=== PATIENT | female | born 1945 | race Caucasian/White ===

== ENCOUNTER 2020-09-04 19:30 | Emergency (ER) | payer MEDICARE, OTHER ==
[2020-09-04] MEDS ORDERED: traMADol 50 MG Tab PO ONE (19:31)
--- NOTE | 2020-09-04 21:20 | CT ---
PROCEDURE INFORMATION: Exam: CT Head Without Contrast Exam date and time: 09/04/2020 8:31 PM Age: 75 years old Clinical indication: Injury or trauma; Fall; Blunt trauma (contusions or hematomas); Without loss of consciousness; Additional info: Fall hit head TECHNIQUE: Imaging protocol: Computed tomography of the head without contrast. Radiation optimization: All CT scans at this facility use at least one of these dose optimization techniques: automated exposure control; mA and/or kV adjustment per patient size (includes targeted exams where dose is matched to clinical indication); or iterative reconstruction. COMPARISON: No relevant prior studies available. FINDINGS: Brain: Age-related cerebral and cerebellar atrophy. There is a normal hopkins-white matter interface. No hemorrhage. No cerebral edema. Unremarkable white matter. No mass effect. No intra-axial or extra-axial fluid collections. Cerebral ventricles: No ventriculomegaly. Paranasal sinuses: Visualized sinuses are unremarkable. No fluid levels. Mastoid air cells: Visualized mastoid air cells are well aerated. Bones/joints: Hyperostosis frontalis. No acute fracture. Soft tissues: Right parietal contusion/small scalp hematoma at the convexity of the brain. IMPRESSION: 1. No acute intracranial abnormality. 2. Right parietal scalp contusion/small hematoma.
--- NOTE | 2020-09-04 21:24 | CT ---
PROCEDURE INFORMATION: Exam: CT Pelvis Without Contrast; Skeletal Exam date and time: 09/04/2020 8:31 PM Age: 75 years old Clinical indication: Injury or trauma; Fall; Blunt trauma (contusions or hematomas); Bilateral; Pelvic region; Additional info: Fall, slipped on boat landing and hit back of head on concrete, bilateral hip pain TECHNIQUE: Imaging protocol: Computed tomography images of the pelvis without contrast. Exam focused on the skeletal structures. Radiation optimization: All CT scans at this facility use at least one of these dose optimization techniques: automated exposure control; mA and/or kV adjustment per patient size (includes targeted exams where dose is matched to clinical indication); or iterative reconstruction. COMPARISON: No relevant prior studies available. FINDINGS: Stomach and bowel: There is increased feces throughout the visualized colon consistent with constipation. Bones/joints: Mild anterolisthesis of L4 on L5, likely degenerative. Disc space narrowing L4-L5 and L5-S1. Severe central spinal stenosis L4-L5. Bulging annulus L5-S1. Acute sacral fractures on the right at the S3-4 level. Soft tissues: Unremarkable. Other findings: Osteoporosis. IMPRESSION: 1. Acute sacral fractures on the right at the S3-4 level. 2. There is increased feces throughout the visualized colon consistent with constipation.
--- NOTE | 2020-09-04 21:27 | CT ---
PROCEDURE INFORMATION: Exam: CT Cervical Spine Without Contrast Exam date and time: 09/04/2020 8:31 PM Age: 75 years old Clinical indication: Injury or trauma; Fall; Blunt trauma; Additional info: Fall hit head TECHNIQUE: Imaging protocol: Computed tomography images of the cervical spine without contrast. Radiation optimization: All CT scans at this facility use at least one of these dose optimization techniques: automated exposure control; mA and/or kV adjustment per patient size (includes targeted exams where dose is matched to clinical indication); or iterative reconstruction. COMPARISON: No relevant prior studies available. FINDINGS: Bones/joints: Mild anterolisthesis of C7 on T1. Finding likely degenerative. Clinical correlation to exclude acute ligamentous injury suggested. Discs/Spinal canal/Neural foramina: Disc space narrowing from C4-C5 through C7-T1. Bilateral foraminal narrowing at C4, moderate to severe bilateral foraminal narrowing at C5, severe foraminal narrowing on the left and moderate foraminal narrowing on the right at C6 secondary to osteophytic encroachment. Lungs: Lung apices are normal. Soft tissues: Unremarkable. IMPRESSION: 1. Mild anterolisthesis of C7 on T1. Finding likely degenerative. Clinical correlation to exclude acute ligamentous injury suggested. 2. No acute fracture. 3. Degenerative spondylosis as described above.
--- NOTE | 2020-09-05 00:16 | EDM.PDOC ---
ED HPI GENERAL MEDICAL PROBLEM - General Chief Complaint: Head Injury Stated Complaint: SLIPPED AND HIT BACK OF HEAD ON CONCRETE Time Seen by Provider: 09/04/20 20:10 Source of Information: Reports: Patient, Family History Limitations: Reports: No Limitations - History of Present Illness INITIAL COMMENTS - FREE TEXT/NARRATIVE: ED via w/c reports slipped and fell backwards on wet concrete and hit back of head no lossof consciousness. fell on to butt. tailbone hurts. no hip pain. denies neck pain. Headache Pain Score (Numeric/FACES): 5 - Related Data Allergies Allergy/AdvReac Type Severity Reaction Status Date / Time No Known Allergies Allergy Verified 09/04/20 20:15 Home Meds: Home Meds Calcium Carb, Citrate/Vit D3 [Calcium + D3 ER Tablet] 1 each PO DAILY 09/04/20 [History] Levothyroxine [Synthroid] 88 mcg PO ACBREAKFAST 09/04/20 [History] Metoprolol Tartrate 25 mg PO DAILY 09/04/20 [History] Omeprazole 20 mg PO DAILY 09/04/20 [History] atorvaSTATin [Lipitor] 20 mg PO BEDTIME 09/04/20 [History] Past Medical History Cardiovascular History: Reports: High Cholesterol, Hypertension Gastrointestinal History: Reports: GERD Endocrine/Metabolic History: Reports: Hypothyroidism - Past Surgical History GI Surgical History: Reports: Appendectomy Female Surgical History: Reports: Tubal Ligation Social & Family History - Tobacco Use Tobacco Use Status *Q: Never Tobacco User Second Hand Smoke Exposure: No - Recreational Drug Use Recreational Drug Use: No ED ROS GENERAL - Review of Systems Review Of Systems: Comprehensive ROS is negative, except as noted in HPI. ED EXAM, HEAD INJURY - Physical Exam Exam: See Below Exam Limited By: No Limitations General Appearance: Alert, Mild Distress Head: Normocephalic, Scalp Lacerations (posterior parietal ), Scalp Hematoma (posterior parietal). No: Atraumatic, Active Bleeding Nexus Criteria: Painful Distraction Injuries. No: Posterior, Midline Cervical Tenderness, Evidence of Intoxication, Altered Level of Consciousness, Focal Neurological Deficit Eyes: Bilateral Eye: EOMI, PERRL Ears: Normal External Exam, Hearing Grossly Normal Nose: Normal Inspection Throat/Mouth: Normal Inspection Neck: Non-Tender, Full Range of Motion Respiratory: No Respiratory Distress, Lungs Clear, Normal Breath Sounds Cardiovascular: Regular Rate, Rhythm Back Exam: Normal Inspection. No: Vertebral Tenderness Neurologic: No Motor/Sensory Deficits, Oriented x 3. No: Motor Weakness - [place] Coma Score Best Eye Response (Ramos): (4) Open Spontaneously Best Verbal Response (Ramos): (5) Oriented Best Motor Response (Ramos): (6) Obeys Commands ED LACERATION/WOUND & SUNDAR PROC - Laceration/Wound Repair Posterior Head Lac/wound length in cm: 1 Appearance: Superficial Skin Prep: Chlorhexidine (Hibiciens), Saline Closed with: Latha # of Sutures: 3 Tetanus Status Addressed: Yes Complications: No Course - Vital Signs Last Recorded V/S: Last Vital Signs Temp 97.5 F 09/04/20 20:05 Pulse 76 09/05/20 00:29 Resp 18 09/05/20 00:29 BP 161/78 H 09/05/20 00:29 Pulse Ox 99 09/05/20 00:29 - Orders/Labs/Meds Meds: Medications Discontinued Medications Generic Name Dose Route Start Last Admin Trade Name Freq PRN Reason Stop Dose Admin Tramadol HCl Confirm 09/05/20 00:22 09/05/20 00:02 Tramadol 50 Mg Tab Administered 09/05/20 00:23 Not Given Dose 100 mg .ROUTE .STK-MED ONE Departure - Departure Time of Disposition: 00:08 Disposition: Home, Self-Care 01 Condition: Good Clinical Impression: Fall Qualifiers: Encounter type: initial encounter Qualified Code(s): W19.XXXA - Unspecified fall, initial encounter Contusion of head Qualifiers: Encounter type: initial encounter Contusion of head detail: scalp Qualified Code(s): S00.03XA - Contusion of scalp, initial encounter Laceration of scalp Qualifiers: Encounter type: initial encounter Qualified Code(s): S01.01XA - Laceration without foreign body of scalp, initial encounter Sacral fracture, closed Qualifiers: Encounter type: initial encounter Zone of sacrum fracture: unspecified portion of sacrum Qualified Code(s): S32.10XA - Unspecified fracture of sacrum, initial encounter for closed fracture - Discharge Information *PRESCRIPTION DRUG MONITORING PROGRAM REVIEWED*: No *COPY OF PRESCRIPTION DRUG MONITORING REPORT IN PATIENT KARYN: No Instructions: Laceration Care, Adult, Contusion, [id number], Head Injury, Adult, [id number] Referrals: PCP,None [Primary Care Provider] - Forms: ED Department Discharge Additional Instructions: latha out 7-10 days in clinic walker may shower tomorrow morning diet as tolerated clinic recheck tuesday tylenol 500mg every 4 hours as needed for pain tramadol 50mg every 6 hours as needed for severe pain follow up with provider for physical therapy referral Sepsis Event Note (ED) - Evaluation Sepsis Screening Result: No Definite Risk - Focused Exam Vital Signs: Vital Signs Temp Pulse Resp BP Pulse Ox 09/05/20 00:29 76 18 161/78 H 99 09/04/20 20:05 97.5 F 66 18 176/78 H 98
[2020-09-05] MEDS ORDERED: traMADol 50 MG Tab ONE (00:22)
== END 2020-09-05 00:41 | disposition home or self-care (01) ==
LOC: DL.ED 19:30
DX: S32.10XA Unspecified fracture of sacrum, initial encounter for closed fracture (principal); S01.01XA Laceration without foreign body of scalp, initial encounter; E78.00 Pure hypercholesterolemia, unspecified; I10 Essential (primary) hypertension; K21.9 Gastro-esophageal reflux disease without esophagitis; Z79.899 Other long term (current) drug therapy; W22.8XXA Striking against or struck by other objects, initial encounter
CPT/HCPCS: 12001; 70450; 72125; 72192; 99283; 99284; A9270